=== PATIENT | female | born 1940 | race Caucasian/White ===

== ENCOUNTER 2025-01-25 12:48 | Outpatient (AMB) | payer OTHER, SELFPAY ==
--- NOTE | 2025-01-25 13:16 | AM.OFFWIN_ITS ---
Intake Vital Signs 01/25/25 13:18 Height 5 ft Weight 167 lb BMI 32.6 BP 102/62 Blood Pressure Location Lt brachial Position Sitting Pulse 74 Pulse Source Pulse Oximeter Temp 97.8 F Temp Source Oral Pulse Oximetry (%) 97 Oxygen Delivery Method Room Air Intake Visit Reasons: [employer] right side of face swollen Intake Note: Pt is here today c/o Rt eye and face red and swollen since yesterday Allergies No Known Allergies Allergy (Verified 01/25/25 13:21) HPI HPI Comments History of Present Illness Details This is an 84-year-old female with a past medical history of hypertension and anxiety presenting for evaluation of swelling in her right upper eyelid and the right side of her face. Patient states her symptoms start ed 4 days ago after raking leaves in her yd. Patient denies having any foreign body sensation in her right eye, visual changes, tearing, fevers, chills or facial pain. Patient has not taken any medication for treatment of her symptoms. Review of Systems Const All systems reviewed & are unremarkable except as noted in HPI and below Denies body aches, Denies chills, Denies fatigue and Denies fever(s) Eyes Reports no additional complaints, Denies blurry vision, Denies exophthalmos, Denies change in vision, Denies eye discharge, Reports irritation (right upper eyelid) and Denies photophobia ENT Details: right sided facial swelling Reports no additional complaints Card Reports no additional complaints Resp Reports no additional complaints Skin/Breast Reports system reviewed and no additional complaints, except as documented Endo Denies fatigue Physical Exam Vital Signs: Last Vital Signs Temp 97.8 F 01/25/25 13:18 Pulse 74 01/25/25 13:18 BP 102/62 01/25/25 13:18 Pulse Ox 97 01/25/25 13:18 Oxygen Delivery Method Room Air 01/25/25 13:18 BMI result Body Mass Index 32.6 Const General: cooperative, healthy appearing, comfortable, no acute distress, well developed, alert, awake and Physically active; No ill appearing Nutritional Appearance: average body habitus Orientation/consciousness: patient oriented x3 Limitations: no limitations HEENT Head: Yes normal to inspection and Yes normocephalic Ears: hearing grossly normal bilaterally, TM's normal bilaterally and EAC's normal Face and sinus: No normal facial exam (facial edema upper aspect of right face, no sinus tenderness), Yes sinuses nontender, Yes erythema (mild macular erythema right upper facial structures), No sinus tenderness and No Facial tenderness on exam of face and sinuses Mouth: Normal oral and palatal mucosa present and oropharynx normal Throat: Yes posterior oropharynx normal Eyes General: appearance abnormal, both eyes Eyelids: No eyelids normal (edema/erythema R. upper eyelid with focal tenderness @ mucucutaneous border) Conjunctivae: conjunctivae normal Sclerae: sclerae normal Corneas: corneas normal Pupils: Equal, round and reactive pupils present EOM: EOMs intact bilaterally Direct Ophthalmoscopy: no photophobia and No photophobia Neck Lymphatic: no lymphadenopathy noted Skin General skin exam: no rashes or lesions noted Neuro General: patient oriented x3 Cranial nerves: Yes Equal, round and reactive pupils present Psych Appearance: grossly normal Mental Status: mental status grossly normal Insight: Good insight present (Psych) Judgement: Good judgement present (Psych) Assessment & Plan Assessment & Plan (1) Hordeolum externum right upper eyelid: Comment: warm compresses at least 5 x daily to right upper eyelid Code(s): H00.011 - Hordeolum externum right upper eyelid Plan: Tylenol as needed for any discomfort. (2) Facial cellulitis: Comment: Hordeolum is contiguous with a mild facial cellulitis and oral antibiotic therapy will be prescribed. Code(s): L03.211 - Cellulitis of face Plan: Keflex 500 mg t.i.d. x7 days. Patient is instructed to follow up for any worsening symptoms. Medications: New cephalexin 500 mg PO Q8H 21 caps 0RF Coding Level of Care Code Est Pt Level 3 (27595) Diagnoses Hordeolum externum right upper eyelid H00.011 Facial cellulitis L03.211 Time Spent (min) 20
[2025-01-25 13:18] VITALS: BP 102/62; PULSE 74; TEMP 36.6; O2SAT 97; BMI 32.6
--- OUTSIDE RECORDS SUMMARY | 2025-01-25 13:56 | XMS_ITS | Clinical Summary ---
Author Organization [facility] [address] [place] [address] [address] [place] [address] Phone Care Team Providers Care Service Order Dispatcher Chief Name Role Phone Soledad Velasquez MD Primary Care Pr ovider Allergies Active Allergy Reactions Criticality Noted Date Comments Bee Venom Protein (Honey Bee) 2017 Penicillins 06/02/2017 Medications Lactobacillus acidophilus (PROBIOTIC ORAL) Take by mouth. Active PEDIATRIC MULTIVITAMIN ORAL Take by mouth. Active albuterol HFA (PROAIR HFA ; PROVENTIL HFA ; VENTOLIN HFA) 90 mcg/actuation inhaler Inhale 2 Puffs into the lungs every 4 hours as needed for Cough, Wheezing or Shortness of Breath. 4 Active fluticasone furoate (Arnuity Ellipta) 100 mcg/actuation blister with device inhaler Inhale 1 Puff into the lungs daily. 4 Active buPROPion XL (WELLBUTRIN XL) 300 mg 24 hr tabletIndications :Anxiety and depression Take 1 tablet (300 mg total) by mouth 1 (one) time each day in the morning. Do not crush, chew, or split. 90 each 1 5 03/20/20 25 Active escitalopram (LEXAPRO) 10 mg tabletIndications :Anxiety and depression Take 1 tablet (10 mg total) by mouth 1 (one) time each day. 90 each 1 5 03/20/20 25 Active lisinopriL (PRINIVIL,ZESTRIL ) 10 mg tablet Take 1 tablet (10 mg total) by mouth 1 (one) time each day. 90 tablet 1 5 Active Active Problems Problem Noted Date Diagnosed Date Osteopenia of multiple sites 05/04/2024 Overview (05/04/2024): Patient is considered to have osteopenia by WHO criteria. This patient has a 15% risk of major osteoporotic fracture and a 4.7% risk of hip fracture over the next 10 years. (World Health Organization Fracture Risk Assessment) At high risk for fracture 05/04/2024 Overview (05/04/2024): Patient is considered to have osteopenia by WHO criteria. This patient has a 15% risk of major osteoporotic fracture and a 4.7% risk of hip fracture over the next 10 years. (World Health Organization Fracture Risk Assessment) Ascending aorta dilatation (CMS/[facility] V24) 024 Assessment & Plan (03/23/2024 1:44 PM EST): Scheduled for follow up ECHO in March Irritable bowel syndrome with diarrhea 2 Insomnia 06/09/2018 CKD (chronic kidney disease) stage 3, GFR 30-59 ml/min (CMS/[facility] V24, CMS/HCC V28) 12/05/2017 Assessment & Plan (03/23/2024 1:44 PM EST): Last GFR was 54 in November Orders: Comprehensive metabolic panel; Future Subclinical hypothyroidism 12/05/2017 Assessment & Plan (03/23/2024 1:44 PM EST): Last TSH in Nov was wnl Mild intermittent asthma without complication Assessment & Plan (03/23/2024 1:44 PM EST): Stable. Continue arnuity daily and albuterol PRN Anxiety and depression 06/02/2017 Assessment & Plan (09/21/2024 11:32 AM EDT): Orders: buPROPion XL (WELLBUTRIN XL) 300 mg 24 hr tablet; Take 1 tablet (300 mg total) by mouth 1 (one) time each day in the morning. Do not crush, chew, or split. escitalopram (LEXAPRO) 10 mg tablet; Take 1 tablet (10 mg total) by mouth 1 (one) time each day. Assessment & Plan (03/23/2024 1:44 PM EST): Well controlled. Continue wellbutrin and lexapro daily Orders: buPROPion XL (WELLBUTRIN XL) 300 mg 24 hr tablet; Take 1 tablet (300 mg total) by mouth 1 (one) time each day in the morning. Do not crush, chew, or split. escitalopram (LEXAPRO) 10 mg tablet; Take 1 tablet (10 mg total) by mouth 1 (one) time each day. Primary osteoarthritis 06/02/2017 Essential hypertension 06/02/2017 Assessment & Plan (03/23/2024 1:44 PM EST): Well controlled Continue Lisinopril 10mg daily Orders: Lipid panel with reflex to direct LDL; Future Comprehensive metabolic panel; Future Obesity (BMI 30-39.9) 06/02/2017 Immunizations Immunization Administration Dates Next Due Influenza Quadravalent, 0.5m l (Fluad) 65yo and older 12/13/2022,01/01/2021 Influenza trivalent, 0.5mL ( Fluad) 65yo and older 12/23/2023,01/14/2023,12/15/2021,2020,12/24/2019,12/13/2018,12/07/2017 Influenza trivalent, 0.5mL ( Fluzone High-dose) 65yo and older 01/14/2023,12/15/2021,12/24/2019,2018,12/07/2017,02/13/2017 Pfizer (ages 12 & older) Biv alent, COVID-19 06/24/2022 [employer] Covid-19 Bivalent, Or iginal + Ba.1 (Non-US Trademark COMIRNATY Bivalent) 06/24/2022 [employer] SARS-CoV-2 COVID-19, mRNA, LNP-S, preservative free 01/19/2021 Pneumococcal conjugate 13 va lent (Prevnar 13, PCV13) 2mo and older 06/13/2019 Pneumococcal conjugate 20 va lent (Prevnar 20, PCV 20) 2mo and older 02/01/2024 RSV, bivalent, protein subun it RSVpreF, 0.5mL, Preservative Free (ABRYSVO) 50yo and older or 32 through 36 wks of 01/25/2024 Tdap Tetanus diptheria acell ular pertussis (Boostrix; Adacel) 7yo and older 03/23/2024 Surgical History Surgery Date Site/Laterality Comments KNEE SURGERY 2014 Right PROCEDURE: HISTORICAL KNEE SURGERY; COMMENT: with hardware, fracture after fall CATARACT EXTRACTION 04/2022 Bilateral PROCEDURE: HISTORICAL CATARACT REMOVAL Medical History Medical History Date Comments Insomnia 06/09/2018 DX:Insomnia Family History Medical History Relation Name Comments Alzheimer's disease Father Alzheimer's disease Mother Dementia Sister age 74 Breast cancer Neg Hx Relation Name Status Comments Father Mother Sister Social History Tobacco Use Types Packs/Day Years Used Date Smoking Tobacco: Never Smokeless Tobacco: Never Tobacco Cessation:Counseling Given: Not Answered Alcohol Use Standard Drinks/Week Comments No 0 (1 standard drink = 0.6 oz pur e alcohol) Housing Instability Answer Date Recorde d Are you worried that in the next 2 months you may not have stable housing? No 09/21/2024 Food Access & Nutrition Answer Date Rec orded Do you have access to a vari ety of food including fruits and vegetables? Yes 09/21/2024 Health Literacy Answer Date Recorded How often do you need to hav e someone help you when you read instructions, pamphlets, or other written material from your doctor or pharmacy? Sometimes 09/21/2024 Caregiver: How often do you need to have someone help you when you read instructions, pamphlets, or other written material from your doctor or pharmacy? Not on file 09/21/2024 Financial Risk Answer Date Recorded How hard is it for you to pa y for the very basics like food, housing, medical care, and air conditioning / heating? Somewhat hard 09/21/2024 Transportation Answer Date Recorded Has the lack of transportati on kept you from meetings, work, or from getting things needed for daily living? No Has the lack of transportati on kept you from medical appointments or from getting medications? No 09/21/2024 Social Isolation Answer Date Recorded How often do you feel lonely or isolated from those around you? Sometimes 09/21/2024 Food Risk Answer Date Recorded Within the past 12 months we worried whether our food would run out before we got money to buy more. Never true 09/21/2024 Within the past 12 months th e food we bought just didn't last and we didn't have money to get more. Never true 09/21/2024 Dependent Care Answer Date Recorded Do you need help finding or paying for care for your loved ones. For example, child welfare assistant or elderly care for an older adult? No 09/21/2024 Education Answer Date Recorded Do you think completing more education or training, like finishing a GED, going to college, or learning a trade, would be helpful for you? No 09/21/2024 Employment and Income Answer Date Recor ded During the last four weeks, have you been actively looking for work? No 09/21/2024 Living Situation Answer Date Recorded What is your living situation? Unrecognized valu e 09/21/2024 Comments Unknown Sex and Gender Information Value Date Recorded Sex Assigned at Not on file Legal Sex Female 8:08 AM EST Gender Identity Not on file Sexual Orientation Not on file Obstetrics History Last Filed Vital Signs Vital Sign Reading Time Taken Comments Blood Pressure 114/83 09/21/2024 11:11 AM EDT Pulse 76 09/21/2024 11:11 AM EDT Temperature 36.3 C (97.3 F) 09/21/2024 11:11 AM EDT Respiratory Rate 12 09/21/2024 11:11 AM EDT Oxygen Saturation 95% 09/21/2024 11:11 AM EDT Inhaled Oxygen Concentration - - Weight 73.9 kg (163 lb) 09/21/2024 11:11 AM EDT Height 149.9 cm (4' 11 ) 09/21/2024 11:11 AM EDT Body Mass Index 32.92 09/21/2024 11:11 AM EDT Plan of Treatment Upcoming Encounters Date Type Department Care Team (Late st Contact Info) Description 04/08/2025 2:30 PM EST Office Visit Adult Medicine [address] [phone] Soledad Velasquez MD [address] [place] [address] Health Maintenance Due Date Last Done Comments Zoster Vaccines (1 of 2) 1959 COVID-19 Vaccine (8 - Pfizer risk season) 2024 01/18/2024, 04/07/2023, 06/24/2022, Additional history exists Influenza Vaccine (#1) 2024 , 01/14/2023, 01/14/2023, Additional history exists Hypertension/CHF/CAD Annual BMP Blood Test 12/25/2024 12/26/2023, 12/26/2023 Colorectal Cancer Screening: Colonoscopy 02/17/2025 02/18/2020 Falls Risk Assessment 09/21/2025 09/21/2024, 025 Medicare Annual Wellness Visit 09/21/2025 09/21/2024 Social Influencers of Health Screening 09/21/2025 09/21/2024 Cholesterol Screening (Lipid Panel) 12/25/2028 12/26/2023, 12/26/2023 DTaP,Tdap,and Td Vaccines (2 - Td or Tdap) 03/23/2034 03/23/2024 Osteoporosis Screening (Bone Density Screening) 05/01/2034 05/01/2024, 01/25/2018 RSV Immunization Adult Patients Completed 01/25/2024 Pneumococcal Vaccine: 50+ Years Completed 02/01/2024, 06/13/2019 Depression Screening Completed 09/21/2024 HIB Vaccines Aged Out No longer eligi ble based on patient's age to complete this topic HPV Vaccines Aged Out No longer eligi ble based on patient's age to complete this topic Hepatitis A Vaccines Aged Out No long er eligible based on patient's age to complete this topic Hepatitis B Vaccines Aged Out No long er eligible based on patient's age to complete this topic IPV Vaccines Aged Out No longer eligi ble based on patient's age to complete this topic MMR Vaccines Aged Out No longer eligi ble based on patient's age to complete this topic Meningococcal ACWY Vaccine Aged Out N o longer eligible based on patient's age to complete this topic Meningococcal B Vaccine Aged Out No l onger eligible based on patient's age to complete this topic RSV Immunization Patients Under 20 months Aged Out No longer eligible based on patient's age to complete this topic Varicella Vaccines Aged Out No longer eligible based on patient's age to complete this topic Procedures Procedure Name Priority Date/Time Associated Diagnosis Comments BD BONE DENSITY DXA AXIAL SKELETON Routine 05/01/2024 1:58 PM EST Osteoporosis screening ANNUAL BMP BLOOD TEST Routine 12/26/2023 LIPID PANEL Routine 12/26/2023 from Last 3 Months or Most Recently Relevant to Health Maintenance Results * BD Bone Density DXA Axial Skeleton (05/01/2024 1:58 PM EST) Anatomical Region Laterality Modality Wrist, Hip, L-spine Bone Densito metry 05/02/2024 8:03 AM EST Impressions 05/02/2024 8:05 AM EST Impression: Patient is considered to have osteopenia by WHO criteria. This patient has a 15% risk of major osteoporotic fracture and a 4.7% risk of hip fracture over the next 10 years. (World Health Organization Fracture Risk Assessment) The [facility] Department of Internal Medicine recommends using National Osteoporosis Foundation (NOF) guidelines in treatment decisions related to osteoporosis. NOF guidelines suggest considering treatment for postmenopausal women and men aged 50 or older presenting with the following: History of hip or vertebral fracture. T-score = -2.5 (DXA) at the femoral neck, total hip, or spine, after appropriate evaluation to exclude secondary causes. Low bone mass (T-score between -1.0 and -2.5 at the femoral neck or spine) AND a 10-year probability of a hip fracture = 3% OR a 10-year probability of a major osteoporosis-related fracture = 20% based on the [place]-adapted WHO algorithm Please note that all treatment decisions require clinical judgment and consideration of individual patient factors, including patient preferences, co-morbidities, previous drug use, risk factors not captured in the FRAX model (e.g., frailty, falls, vitamin D deficiency, increased bone turnover, interval significant decline in bone density) and possible under- or over-estimation of fracture risk by FRAX. Optional alternative screening schedule based on kimi Wilkinson., [facility] April 15, 2011 for patients with osteopenia (based on hip BMD T-score) is as follows: * advanced osteopenia (T scores -2.00 to -2.49), BMD testing every year * moderate osteopenia (T scores -1.50 to -1.99), BMD testing every 5 years mild osteopenia or normal BMD (T scores -1.50 and higher), BMD testing every 15 years -------- FINAL REPORT -------- Dictated By: Anu Cheney Dictated Date: 05/02/2024 08:03 ET Assigned Physician: Anu Cheney Reviewed and Electronically Signed By: Anu Cheney Signed Date: 05/02/2024 08:05 ET Workstation ID: [id number] Transcribed By: Self Edit Transcribed Date: 05/02/2024 08:03 ET Narrative 05/02/2024 8:05 AM EST BONE DENSITY (DEXA) Lumbar Spine T-score is 2.7. (SD relative to 20-29 y/o adult) Z-score is 5.5. (SD relative to age matched peers) This is considered normal by WHO criteria. Left Hip T-score is -2.2. Z-score is 0.2. This is considered osteopenia by WHO criteria. Lateral view of the spine demonstrates vertebral heights to be maintained. Procedure Note Anu Cheney MD - 05/02/2024 BONE DENSITY (DEXA) Lumbar Spine T-score is 2.7. (SD relative to 20-29 y/o adult) Z-score is 5.5. (SD relative to age matched peers) This is considered normal by WHO criteria. Left Hip T-score is -2.2. Z-score is 0.2. This is considered osteopenia by WHO criteria. Lateral view of the spine demonstrates vertebral heights to bemaintained. IMPRESSION: Impression: Patient is considered to have osteopenia by WHO criteria. This patient hasa 15% risk of major osteoporotic fracture and a 4.7% risk of hip fractureover the next 10 years. (World Health Organization Fracture RiskAssessment) The [facility] Department of Internal Medicine recommendsusing National Osteoporosis Foundation (NOF) guidelines in treatmentdecisions related to osteoporosis. NOF guidelines suggest consideringtreatment for postmenopausal women and men aged 50 or older presentingwith the following: History of hip or vertebral fracture. T-score = -2.5 (DXA) at the femoral neck, total hip, or spine, afterappropriate evaluation to exclude secondary causes. Low bone mass (T-score between -1.0 and -2.5 at the femoral neck or spine)AND a 10-year probability of a hip fracture = 3% OR a 10-year probabilityof a major osteoporosis-related fracture = 20% based on the [place]-adapted WHOalgorithm Please note that all treatment decisions require clinical judgment andconsideration of individual patient factors, including patientpreferences, co-morbidities, previous drug use, risk factors not capturedin the FRAX model (e.g., frailty, falls, vitamin D deficiency, increasedbone turnover, interval significant decline in bone density) and possibleunder- or over-estimation of fracture risk by FRAX. Optional alternative screening schedule based on [facility] Wilkinson., [facility] for patients with osteopenia (based on hip BMD T-score)is as follows: * advanced osteopenia (T scores -2.00 to -2.49), BMD testing every year * moderate osteopenia (T scores -1.50 to -1.99), BMD testing every 5years mild osteopenia or normal BMD (T scores -1.50 and higher), BMD testingevery 15 years -------- FINAL REPORT -------- Dictated By: Anu Cheney Dictated Date: 05/02/2024 08:03 ET Assigned Physician: Anu Cheney Reviewed and Electronically Signed By: Anu Cheney Signed Date: 05/02/2024 08:05 ET Workstation ID: [id number] Transcribed By: Self Edit Transcribed Date: 05/02/2024 08:03 ET Soledad Velasquez MD [facility]ED[place] Final Result * Annual BMP Blood Test (12/26/2023) Pathologist [facility] Annual BMP Blood Test abstracted Historical Provider HEALTH MAINTENANCE Final Result * (ABNORMAL) Lipid panel (12/26/2023) LDL/HDL Ratio 2 0 - 4 Triglycerides 183(A) 0 - 150 mg/dL Cholesterol 172 0 - 200 mg/dL HDL 73 >=40 mg/dL LDL Cholesterol 63 0 - 100 mg/dL Blood Venous blood specimen / Unknown us Historical Provider LAB BLOOD ORDERABLES Debbie l Result from Last 3 Months or Most Recently Relevant to Health Maintenance Insurance [facility] MEDICARE Member Subscriber Plan / Payer (Ef fective 2023-Present) Name:SORAIDA DAVE Relation to Subscriber:Self Name:Soraida Dave Payer ID:[id number] Group ID:[id number] Type:Not on file Address: [place] [address] [place] [address] Care Teams Service Order Dispatcher Chief Relationship Specialty Start Date End Date Soledad Velasquez MD [address] [place], [place] PCP - General Internal Medicine 10/12/21
--- OUTSIDE RECORDS SUMMARY | 2025-01-25 13:56 | XMS_ITS | Clinical Summary ---
Author Organization [facility] Address [address] [facility] [address] [place] [address] Care Team Providers Care Industrial Pharmacist Name Role Phone Unavailable Primary Care Provider Unavailabl e Immunizations Immunization Administration Dates Next Due Influenza Quadrivalent Adjuvanted 12/13/2022,09/2020 Influenza, High Dose Seasona l, Preservative Free 01/14/2023,12/15/2021,12/24/2019,2018,12/07/2017,02/13/2017 Pfizer Covid-19 Vaccine 12+ 04/07/2023,,01/19/2021 Pfizer Covid-19 Vaccine 12+ Bivalent 06/24/2022 Pneumococcal Conjugate PCV 13 06/13/2019 Social History Tobacco Use Types Packs/Day Years Used Date Smoking Tobacco: Never Assessed Comments Unknown Sex and Gender Information Value Date Recorded Sex Assigned at Female 04/07/2023 10:07 AM EST Legal Sex Female 10:06 AM EST Gender Identity Female 04/07/2023 10:07 AM EST Sexual Orientation Choose not to disclose 2023 10:07 AM EST Plan of Treatment Health Maintenance Due Date Last Done Comments Depression Screening 1941 Lipid Panel 1941 SDOH Screening 1941 Alcohol/Substance Use Screening 1953 Tobacco Screening 1953 Zoster Vaccines (1 of 2) 1991 RSV Patients and Patients Aged 60 years or older (1 - 1-dose 75+ series) 2016 COVID-19 Vaccine ( season) 2024 04/07/2023, 06/24/2022, 07/16/2021, Additional history exists Influenza Vaccine (#1) 2024 , 01/14/2023, 01/14/2023, Additional history exists DTaP/Tdap/Td Vaccines (2 - Td or Tdap) 03/23/2034 03/23/2024 Pneumococcal Vaccine: 50+ Years Completed 02/01/2024, 06/13/2019 HIB Vaccines Aged Out No longer eligi [...] patient's age to complete this topic Meningococcal Vaccine Aged Out No radha lester eligible based on patient's age to complete this topic RSV under 20 months Aged Out No longe r eligible based on patient's age to complete this topic Rotavirus Vaccines Aged Out No longer eligible based on patient's age to complete this topic Insurance [facility] DUAL COMPLETE
== END 2025-01-25 14:11 | disposition home or self-care (01) ==
PROVIDERS: Visit Provider Physician Assistant
DX: H00.011 Hordeolum externum right upper eyelid (principal); L03.211 Cellulitis of face

== ENCOUNTER → 2025-01-25 12:48 | Outpatient (BNVA) | payer OTHER, SELFPAY | PROVIDERS: Visit Provider Physician Assistant | DX: H00.011 Hordeolum externum right upper eyelid (principal); L03.211 Cellulitis of face; I10 Essential (primary) hypertension; F41.9 Anxiety disorder, unspecified | CPT/HCPCS: 99212 ==